=== PATIENT | female | born 1980 | race Caucasian/White ===

== ENCOUNTER 2024-04-26 09:56 | Emergency (ER) | payer BC, OTHER ==
--- NOTE | 2024-04-26 10:38 | RAD REPORT ---
EXAM DESCRIPTION: RAD - Hand Right 3 View - 04/26/2024 10:29 am CLINICAL HISTORY: Right hand pain FINDINGS: No fracture or dislocation is seen.
--- NOTE | 2024-04-26 10:48 | RAD REPORT ---
EXAM DESCRIPTION: CT - Facial Bones W/ Mpr - 04/26/2024 10:26 am CLINICAL HISTORY: Facial injury with pain COMPARISON: None TECHNIQUE: Computed axial tomography of the face was obtained. Coronal and sagittal reconstruction w as performed. All CT scans are performed using dose optimization technique as appropriate and may include automated exposure control or mA/KV adjustment according to patient size. FINDINGS: A fracture is not seen. A TMJ dislocation is not noted. The globes are intact. Fluid within the sinuses is not seen. IMPRESSION: Negative for a facial fracture.
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
[2024-04-26 12:14] VITALS: BP 140/78; TEMP 97; O2SAT 99
== END 2024-04-26 12:02 | disposition home or self-care (01) ==
LOC: ER 09:56
DX: S09.90XA Unspecified injury of head, initial encounter (principal)
CPT/HCPCS: 70486; 76377; 99284